=== PATIENT | female | born 1995 | race Caucasian/White ===

== ENCOUNTER 2016-03-28 22:31 | Emergency (ER) | payer OTHER ==
[~2016-03-28] VITALS: Ht 170.2 cm; Wt 84.0 kg
[2016-03-28 22:39] VITALS: BP 122/79; PULSE 105; RESP 20; O2SAT 95
--- NOTE | 2016-03-28 22:57 | ED.REPORT ---
HPI-General Illness Date of Service Mar 28, 2016 ED Provider: Dr. Lakhwinder Monsalve M.D. 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 Associated symptoms include dry cough, lower lip swelling, tremulousness, and itchy hives to chest and bilateral arms. The patient took 50mg Benadryl PO at 20:40 with relief of her lip swelling and rash. She believes her symptoms are an allergic reaction but she is unsure of the cause. The patient denies diarrhea, chest pain, dysphagia, or other symptoms. She has had similar symptoms in the past. Nursing Notes Stated Complaint: TROUBLE BREATHING/HIVES Chief Complaint: Skin Rash/Abscess Nursing Notes Reviewed: Yes Allergies: Coded Allergies: Poppy Seed (Verified Allergy, Severe, Anaphylaxis, 08/08/15) cephalexin (Verified Allergy, Severe, Hives, 08/08/15) kiwi (Verified Allergy, Severe, Anaphylaxis, 08/08/15) promethazine (Verified Allergy, Severe, Dizziness, 08/08/15) Scheduled Famotidine (Pepcid) 20 Mg Tablet 20 MG PO BID Loratadine (Claritin) 10 Mg Capsule 10 MG PO DAILY Prednisone (PredniSONE) 20 Mg Tablet 60 MG PO DAILY General Time Seen by MD: 22:56 Chief Complaint Breathing problem (Shortness of Breath) Hx Obtained From: Patient Arrived By: Walk-in Sudden in Onset?: Yes Onset Occurred: 1 - 4 hours ago Symptom Duration: Since onset Location: : Arm left: Arm right: Chest Quality: Itching Severity: Current: No pain currently Severity: Maximum: Mild Associated with: Reports: Cough, Itching, Rash, Denies: Chest pain, Fever Relieved by: OTC medications (Benadryl) Context Related History: Reports Asthma Recent Healthcare: No recent doctor visit Similar Sx Previous: Yes Past Medical History Past Medical History Asthma Scoliosis Hypertension Past Surgical History None reported. Smoking History Never Smoker Social History Other Social History: Good social support Ambulatory Status Independent Review of Systems Full Review of Systems Constitutional: Denies: Fever Respiratory: Reports: Non-productive cough, Shortness of breath Cardiovascular: Denies: Chest pain GI: Denies: Diarrhea, Dysphagia, Vomiting Skin: Reports Swelling (lower lip) Allergy / Immune: Reports: Hives (Chest and bilateral arms), Itching (Chest and bilateral arms) Neurologic: Reports: Shaking (Tremulousness) Complete sys rev & neg: except as marked. Physical Exam Vital Signs Vital Signs Date Time Temp Pulse Resp B/P Pulse Ox O2 Delivery O2 Flow Rate FiO2 03/28/16 23:46 99 16 123/80 99 Room Air 03/28/16 23:11 110 16 98 Room Air 03/28/16 22:39 36.6 105 20 122/79 95 Room Air Initial VS: Reviewed Head / Eyes: Atraumatic, Normocephalic Neck: Supple, Full range of motion Cardiovascular: Regular rate & rhythm, Heart sounds normal Psychiatric: Mood/affect normal, Behavior normal, Normal thought content General/Constitutional: Awake, Alert ENT: Airway patent, Mucous membranes moist, Pharynx NL, No facial swelling Respiratory / Chest: Breath sounds NL, Breath sounds = bilat, No respiratory distress Subjective resistance to breathing Skin: Color NL, No rash, Warm, Dry Neurologic: Oriented X3, Speech NL Movement Abnormality: Positive: Tremor Re-Eval/Medical Decision Med Decision/Clinical Course 20-year-old various environmental allergies presents with lip 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 Unknown what substance she may have been exposed to. She was already improved fairly markedly with self-administered Benadryl, but has some mild residual swelling. Voice is fine swallowing uninfected lungs are clear no cough and no other significant findings. Home with brief steroid course, Claritin, Pepcid, and follow up with PCP Time of Eval: 23:11 Patient Status: Condition improved Re-Evaluation/Progress Note: Discussed with patient diagnosis and plan for discharge. Follow-up and return to the ER instructions given. Patient agrees with plan for care and all questions were addressed. Counseled Regarding: Diagnosis, Need for follow-up, When/why to return to ED Discharge & Departure Primary Impression: Urticaria Disposition: Home Discharge Condition All VS Reviewed: Yes Condition: Improved Patient Instructions: Urticaria (ED) Additional Instructions: Prednisone three tabs daily for three days Claritin daily for seven days Pepcid twice daily for seven days Benadryl up to four times daily if additional needed. Follow-up your doctor in the office. Return if any immediate issues with breathing or mouth swelling. Referrals: [facility]PC[facility] Att[facility] Portions of this note were transcribed by Rosa Yoder. I, Dr. Monsalve, personally performed the history, physical exam, and medical decision-making; I reviewed and confirmed the accuracy of the information in the transcribed note. Signed by: Yonatan Martin, 03/28/2016, 23:35 copies to: [facility] Lakhwinder Monsalve MD Mar 28, 2016 22:57 ROSA YODER Mar 28, 2016 23:13
[2016-03-28] MEDS ORDERED: Epinephrine Racemic 2.25% 0.5 mL Inhalation Solution NEB ONE (23:05)
[2016-03-28] MEDS ORDERED: Dexamethasone 20 mg/2 mL Oral Solution PO ONE (23:05)
[2016-03-28 23:11] VITALS: PULSE 110; RESP 16; O2SAT 98
[2016-03-28] MEDS ORDERED: FAMO20T PO (23:27)
[2016-03-28] MEDS ORDERED: PRE20 PO (23:27)
[2016-03-28] MEDS ORDERED: LORA10CA PO (23:27)
[2016-03-28 23:46] VITALS: BP 123/80; PULSE 99; RESP 16; O2SAT 99
== END 2016-03-28 23:36 | disposition home or self-care (01) ==
LOC: SED 22:31
DX: L50.9 Urticaria, unspecified (principal); I10 Essential (primary) hypertension; J45.909 Unspecified asthma, uncomplicated; Z79.52 Long term (current) use of systemic steroids; Z88.1 Allergy status to other antibiotic agents; Z88.8 Allergy status to other drugs, medicaments and biological substances